=== PATIENT | female | born 1980 | race Caucasian/White ===

== ENCOUNTER 2016-10-09 13:42 | Emergency (ER) | payer BC ==
[2016-10-09 16:01] VITALS: BP 122/77
[2016-10-09] MEDS ORDERED: LORazepam 0.5 MG Tab PO ONE (16:20)
--- NOTE | 2016-10-09 16:23 | EDM.PDOCBH ---
ED HPI GENERAL MEDICAL PROBLEM - General Chief Complaint: Behavioral/Psych Stated Complaint: ANXIETY;MEDS NOT HELPING Time Seen by Provider: 10/09/16 16:00 Source of Information: Reports: Patient History Limitations: Reports: No Limitations - History of Present Illness INITIAL COMMENTS - FREE TEXT/NARRATIVE: Pt arrived with marked tightness in the neck and shoulders. She also feels like her heart is racing. Onset: Gradual Duration: Day(s):, Other (no getting better. 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: Musculoskeletal History: Reports: Back Pain, Chronic, Neck Pain, Chronic Psychiatric History: Reports: Anxiety, Depression, Panic Attack - Infectious Disease History Infectious Disease History: Reports: C-Difficile, RSV - Past Surgical History Female Surgical History: Reports: Section Social & Family History - Tobacco Use Smoking Status *Q: Current Every Day Smoker Years of Tobacco use: 10 Packs/Tins Daily: 0.7 Second Hand Smoke Exposure: Yes - Caffeine Use Caffeine Use: Reports: Coffee, Energy Drinks, Soda - Alcohol Use Days Per Week of Alcohol Use: 0 - Recreational Drug Use Recreational Drug Use: No ED ROS GENERAL - Review of Systems Review Of Systems: See Below Constitutional: Reports: No Symptoms HEENT: Reports: No Symptoms Respiratory: Reports: No Symptoms Cardiovascular: Reports: Palpitations Endocrine: Reports: No Symptoms GI/Abdominal: Reports: No Symptoms : Reports: No Symptoms Musculoskeletal: Reports: Other (pain in the neck and shoulders. ) Skin: Reports: No Symptoms ED EXAM, BEHAVIORAL HEALTH - Physical Exam Exam: See Below Text/Narrative:: pt arrived feeling very anxious and like her heart is racing. She has no chest pain. She has taken .5 of ativan today and she is still very anxious. She has a concern that she could hav something physically going on. Exam Limited By: No Limitations General Appearance: Alert, Anxious Ears: Normal TMs Nose: Normal Inspection Throat/Mouth: Normal Inspection Head: Atraumatic Neck: Normal Inspection Respiratory/Chest: No Respiratory Distress Cardiovascular: Regular Rate, Rhythm, Tachycardia, Other ( rate was 90 when I saw her. ) GI/Abdominal: Soft, Non-Tender (Female) Exam: Deferred Rectal (Female) Exam: Deferred Back Exam: Normal Inspection Extremities: Normal Inspection Neurological: Alert, Normal Cognition Psychiatric: Agitated COURSE, BEHAVIORAL HEALTH COMP - Course Vital Signs: Last Vital Signs Temp 36.4 C 10/09/16 16:06 Pulse 85 10/09/16 16:06 Resp 15 10/09/16 16:06 BP 122/77 10/09/16 16:06 Pulse Ox 99 10/09/16 16:06 Orders, Labs, Meds: Active Orders 24 hr Category Date Time Status EKG Documentation Completion [RC] ASDIRECTED Care 10/09/16 16:19 Active TSH ULTRASENSITIVE [CHEM] Stat Lab 10/09/16 17:18 Received EKG 12 Lead [EK] Routine Ther 10/09/16 16:19 Ordered Laboratory Tests 10/09/16 10/09/16 10/09/16 Range/Units 16:27 16:27 17:12 WBC 9.6 (4.5-11.0) K/uL RBC 5.20 (3.30-5.50) M/uL Hgb 15.8 H (12.0-15.0) g/dL Hct 46.5 (36.0-48.0) % MCV 89 (80-98) fL MCH 30 (27-31) pg MCHC 34 (32-36) % Plt Count 324 (150-400) K/uL Neut % (Auto) 63 (36-66) % Lymph % (Auto) 29 (24-44) % Perkins % (Auto) 6 (2-6) % Eos % (Auto) 1 L (2-4) % Baso % (Auto) 2 H (0-1) % Sodium 138 L (140-148) mmol/L Potassium 4.3 (3.6-5.2) mmol/L Chloride 105 (100-108) mmol/L Carbon Dioxide 25 (21-32) mmol/L Anion Gap 12.3 (5.0-14.0) mmol/L BUN 12 (7-18) mg/dL Creatinine 0.8 (0.6-1.0) mg/dL Est Cr Clr Drug Dosing 90.00 mL/min Estimated GFR (MDRD) > 60 (>60) Glucose 95 (74-106) mg/dL Calcium 8.7 (8.5-10.1) mg/dL Total Bilirubin 0.4 (0.2-1.0) mg/dL AST 16 (15-37) U/L ALT 28 (12-78) U/L Alkaline Phosphatase 49 (46-116) U/L Total Protein 7.8 (6.4-8.2) g/dL Albumin 3.8 (3.4-5.0) g/dL Globulin 4.0 H (2.3-3.5) g/dL Albumin/Globulin Ratio 1.0 L (1.2-2.2) Urine Color Yellow Urine Appearance Clear Urine pH 7.0 (4.5-8.0) Ur Specific [place] 1.010 (1.008-1.030) Urine Protein Negative (NEGATIVE) mg/dL Urine Glucose (UA) Normal (NEGATIVE) mg/dL Urine Ketones Negative (NEGATIVE) mg/dL Urine Occult Blood Negative (NEGATIVE) Urine Nitrite Negative (NEGATIVE) Urine Bilirubin Negative (NEGATIVE) Urine Urobilinogen Normal (NORMAL) mg/dL Ur Leukocyte Esterase Negative (NEGATIVE) Urine RBC 0-5 (0-5) Urine WBC Not seen (0-5) Ur Epithelial Cells Few Amorphous Sediment Not seen Urine Bacteria Not seen Urine Mucus Not seen Medications Discontinued Medications Generic Name Dose Route Start Last Admin Trade Name Freq PRN Reason Stop Dose Admin Lorazepam 0.25 mg 10/09/16 16:20 10/09/16 16:29 Ativan PO 10/09/16 16:21 0.25 mg ONETIME ONE Administration Medical Clearance: 10/09/16 17:41 pt was found to have normal electrolytes and her bs is normal. Her ekg was normal. Pt was given ativan .25 while she was here. Departure - Departure Time of Disposition: 17:44 Disposition: Home, Self-Care 01 Condition: Fair Clinical Impression: Panic attack - Discharge Information Forms: ED Department Discharge Care Plan Goals: use .5 of ativan q6-8h for the next 2 days. Use on a regular basis. keep appt with a counselor and her regular Dr. - My Orders Last 24 Hours: My Active Orders 10/09/16 16:19 EKG Documentation Completion [RC] ASDIRECTED EKG 12 Lead [EK] Routine 10/09/16 17:18 TSH ULTRASENSITIVE [CHEM] Stat - Assessment/Plan Last 24 Hours: My Active Orders 10/09/16 16:19 EKG Documentation Completion [RC] ASDIRECTED EKG 12 Lead [EK] Routine 10/09/16 17:18 TSH ULTRASENSITIVE [CHEM] Stat
== END 2016-10-09 17:55 | disposition home or self-care (01) ==
LOC: JP.ED 13:42
DX: F41.0 Panic disorder [episodic paroxysmal anxiety] (principal); R00.0 Tachycardia, unspecified; F32.9 Major depressive disorder, single episode, unspecified; F17.210 Nicotine dependence, cigarettes, uncomplicated; Z98.890 Other specified postprocedural states
CPT/HCPCS: 36415; 80053; 81001; 84443; 85025; 93005; 99284; A9270

== ENCOUNTER 2017-06-02 11:11 | Emergency (ER) | payer BC ==
[2017-06-02 11:24] VITALS: BP 122/80
[2017-06-02] MEDS ORDERED: Cyclobenzaprine 10 MG Tab PO ONE (11:51)
[2017-06-02] MEDS ORDERED: Ketorolac 60 MG/2 ML SDV IM ONE (11:51)
--- NOTE | 2017-06-02 11:53 | EDM.PDOC ---
ED HPI GENERAL MEDICAL PROBLEM - General Chief Complaint: Upper Extremity Injury/Pain Stated Complaint: RIGHT SHOULDER/NECK PAIN Time Seen by Provider: 06/02/17 11:49 Source of Information: Reports: Patient, RN Notes Reviewed History Limitations: Reports: No Limitations - History of Present Illness INITIAL COMMENTS - FREE TEXT/NARRATIVE: 36-year-old female presents to the emergency department day complaint of right neck and right shoulder pain, she states she was fine yesterday and awoke this morning in severe pain, she is tried some ibuprofen with minimal relief no shortness of breath or difficulty breathing no numbness and tingling no headache Right Neck Pain Score (Numeric/FACES): 7 - Related Data Allergies Allergy/AdvReac Type Severity Reaction Status Date / Time No Known Allergies Allergy Verified 06/02/17 11:30 Home Meds: Home Meds Ibuprofen [Motrin] 600 mg PO Q6H #40 tablet 01/19/14 [Rx] LORazepam 1 mg PO TID 10/09/16 [History] Cyclobenzaprine [Flexeril] 10 mg PO TID PRN #10 tab 06/02/17 [Rx] PARoxetine HCl [Paxil] 40 mg PO BEDTIME 06/02/17 [History] Past Medical History HEENT History: Reports: 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: Musculoskeletal History: Reports: Back Pain, Chronic, Neck Pain, Chronic Psychiatric History: Reports: Anxiety, Depression, Panic Attack - Infectious Disease History Infectious Disease History: Reports: C-Difficile, RSV - Past Surgical History Female Surgical History: Reports: Section Social & Family History - Tobacco Use Smoking Status *Q: Current Every Day Smoker Years of Tobacco use: 10 Packs/Tins Daily: 0.7 Second Hand Smoke Exposure: Yes - Caffeine Use Caffeine Use: Reports: Coffee, Energy Drinks, Soda - Alcohol Use Days Per Week of Alcohol Use: 0 - Recreational Drug Use Recreational Drug Use: No Review of Systems - Review of Systems Review Of Systems: See Below Respiratory: Reports: No Symptoms Cardiovascular: Reports: No Symptoms Musculoskeletal: Reports: Shoulder Pain, Arm Pain Skin: Reports: No Symptoms Neurological: Reports: No Symptoms ED EXAM, GENERAL - Physical Exam Exam: See Below Free Text/Narrative:: Examination of the neck she is tender paraspinal muscles on the right side tender along the rhomboid muscles on the right side she does have full range of motion of the neck however she does flex to the right. She with movement of the right shoulder, radial pulse is +2 Exam Limited By: No Limitations General Appearance: Alert, Mild Distress Respiratory/Chest: No Respiratory Distress Course - Vital Signs Last Recorded V/S: Last Vital Signs Temp 98.1 F 06/02/17 11:27 Pulse 100 06/02/17 11:27 Resp 20 06/02/17 11:27 BP 122/80 06/02/17 11:27 Pulse Ox 98 06/02/17 11:27 - Orders/Labs/Meds Meds: Medications Discontinued Medications Generic Name Dose Route Start Last Admin Trade Name Freq PRN Reason Stop Dose Admin Cyclobenzaprine HCl 10 mg 06/02/17 11:51 06/02/17 12:17 Flexeril PO 06/02/17 11:52 10 mg ONETIME ONE Administration Ketorolac Tromethamine 60 mg 06/02/17 11:51 06/02/17 12:17 Toradol IM 06/02/17 11:52 60 mg ONETIME ONE Administration Departure - Departure Time of Disposition: 13:15 Disposition: Home, Self-Care 01 Condition: Good Clinical Impression: Cervical muscle strain Qualifiers: Encounter type: initial encounter Qualified Code(s): S16.1XXA - Strain of muscle, fascia and tendon at neck level, initial encounter - Discharge Information Prescriptions: Cyclobenzaprine [Flexeril] 10 mg PO TID PRN #10 tab PRN Reason: Pain Referrals: Adriana Tate CNM [Primary Care Provider] - Forms: ED Department Discharge Additional Instructions: Continue to use ibuprofen and Tylenol as needed for pain control, use Flexeril as needed for muscle relaxant and pain, Please followup with your primary care provider in 3-5 days if not better, please call return to the emergency department with worsening of symptoms. - Assessment/Plan Plan: Assessment Acuity = acute Site and laterality = cervical muscle strain Etiology = unclear etiology Manifestations = none Location of injury = Home Lab values = none Plan She had good relief combination Toradol and Flexeril plan is to continue Tylenol or ibuprofen as needed for pain control in combination with Flexeril 1 tab by mouth 3 times a day when necessary total #10 follow-up with primary care in 3-5 days if no improvement This note was dictated using [employer] recognition software please call with any questions on syntax or diamond.
== END 2017-06-02 13:37 | disposition home or self-care (01) ==
LOC: JP.ED 11:11
DX: S16.1XXA Strain of muscle, fascia and tendon at neck level, initial encounter (principal); F17.210 Nicotine dependence, cigarettes, uncomplicated; X58.XXXA Exposure to other specified factors, initial encounter
CPT/HCPCS: 96372; 99283; A9270; J1885

== ENCOUNTER 2017-06-28 19:11 | Emergency (ER) | payer BC ==
[2017-06-28 19:29] VITALS: BP 129/85
[2017-06-28] MEDS ORDERED: Ketorolac 60 MG/2 ML SDV IM ONE (19:55)
--- NOTE | 2017-06-28 19:58 | EDM.PDOC ---
ED HPI GENERAL MEDICAL PROBLEM - General Chief Complaint: Back Pain or Injury Stated Complaint: LOW BACK PAIN Time Seen by Provider: 06/28/17 19:35 Source of Information: Reports: Patient, Family History Limitations: Reports: No Limitations - History of Present Illness INITIAL COMMENTS - FREE TEXT/NARRATIVE: 36-year-old female slipped on the couch last night, woke up this morning noticing her back felt stiff but within 2 hours she was unable to stand straight and was having significant sharp pain in her lower back radiating into the posterior left leg. She had to leave work. She went into the chiropractor but that made her "worse". No incontinence or paresthesias of the left leg. 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 Lower Back Pain Score (Numeric/FACES): 10 - Related Data Allergies Allergy/AdvReac Type Severity Reaction Status Date / Time No Known Allergies Allergy Verified 06/28/17 19:29 Home Meds: Home Meds Ibuprofen [Motrin] 600 mg PO Q6H #40 tablet 01/19/14 [Rx] LORazepam 1 mg PO TID 10/09/16 [History] Cyclobenzaprine [Flexeril] 10 mg PO TID PRN #10 tab 06/02/17 [Rx] PARoxetine HCl [Paxil] 40 mg PO BEDTIME 06/02/17 [History] Past Medical History HEENT History: Reports: Impaired Vision 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 History: Reports: Musculoskeletal History: Reports: Back Pain, Chronic, Neck Pain, Chronic Psychiatric History: Reports: Anxiety, Depression, Panic Attack - Infectious Disease History Infectious Disease History: Reports: C-Difficile, RSV - Past Surgical History Female Surgical History: Reports: Section Social & Family History - Tobacco Use Smoking Status *Q: Current Every Day Smoker Years of Tobacco use: 15 Packs/Tins Daily: 0.7 Second Hand Smoke Exposure: Yes - Caffeine Use Caffeine Use: Reports: Coffee, Tea - Alcohol Use Days Per Week of Alcohol Use: 0 - Recreational Drug Use Recreational Drug Use: No ED ROS GENERAL - Review of Systems Review Of Systems: See Below Constitutional: Denies: Fever, Chills Respiratory: Denies: Shortness of Breath Cardiovascular: Denies: Chest Pain GI/Abdominal: Denies: Abdominal Pain, Nausea, Vomiting : Denies: Incontinence Skin: Denies: Rash Neurological: Reports: No Symptoms ED EXAM,LOWER BACK PAIN/INJURY - Physical Exam Exam: See Below Exam Limited By: No Limitations General Appearance: Alert, No Apparent Distress (Uncomfortable but not distressed) Head: Atraumatic Respiratory/Chest: No Respiratory Distress Back Exam: Paraspinal Tenderness (Very tender to palpation on the left paralumbar area) Neurological: Alert, Normal Mood/Affect, Other (She has increased pain with flexion of the left hip and straight leg raising but no true radiculopathy. It' s more of a pulling sensation of the lower back.) Course - Vital Signs Last Recorded V/S: Last Vital Signs Temp 97.0 F 06/28/17 19:26 Pulse 110 H 06/28/17 19:26 Resp 14 06/28/17 19:26 BP 129/85 06/28/17 19:26 Pulse Ox 98 06/28/17 19:26 - Orders/Labs/Meds Meds: Medications Discontinued Medications Generic Name Dose Route Start Last Admin Trade Name Adonis PRN Reason Stop Dose Admin Ketorolac Tromethamine 60 mg 06/28/17 19:55 06/28/17 20:03 Toradol IM 06/28/17 19:56 60 mg ONETIME ONE Administration - Re-Assessments/Exams Free Text/Narrative Re-Assessment/Exam: 06/28/17 19:56 Patient was given an injection of Toradol 60 mg IM. Also given Flexeril to take up to 3 times a day and will be put on prednisone 60 mg a day for the next 3-5 days with her morning meal. I encouraged her to increase activity as tolerated but wrote her a note for work for the next 2-4 days. Recheck on Saturday if not improving satisfactorily, further evaluation or physical therapy consultation might be needed. Departure - Departure Time of Disposition: 20:18 Disposition: Home, Self-Care 01 Condition: Good Clinical Impression: Low back pain Qualifiers: Chronicity: acute Back pain laterality: left Sciatica presence: without sciatica Qualified Code(s): M54.5 - Low back pain - Discharge Information Instructions: Back Pain, Adult, [id number] Referrals: Bebeto,Adriana A, CNM [Primary Care Provider] - Forms: ED Department Discharge Care Plan Goals: Continue with ibuprofen and Tylenol, along with Flexeril when needing rest. Take 6 pills of prednisone each morning with food for the next 3-5 days and increase activity as tolerated. Recheck on Saturday if not improving satisfactorily, you may need further evaluation or physical therapy consultation.
== END 2017-06-28 20:21 | disposition home or self-care (01) ==
LOC: JP.ED 19:11
DX: M54.5 Low back pain (principal); F17.210 Nicotine dependence, cigarettes, uncomplicated; F41.9 Anxiety disorder, unspecified; F32.9 Major depressive disorder, single episode, unspecified
CPT/HCPCS: 96372; 99283; J1885

== ENCOUNTER 2018-11-08 06:34 | Emergency (ER) | payer BC ==
[2018-11-08 07:21] VITALS: BP 124/81; PULSE 101
--- NOTE | 2018-11-08 08:18 | EDM.PDOC ---
ED HPI GENERAL MEDICAL PROBLEM - General Chief Complaint: Cardiovascular Problem Stated Complaint: HIGH BP, LIGHT HEADED, FAST HEART RATE Time Seen by Provider: 11/08/18 08:00 Source of Information: Reports: Patient History Limitations: Reports: No Limitations - History of Present Illness INITIAL COMMENTS - FREE TEXT/NARRATIVE: 38-year-old female with palpitations, anxiety and lightheaded sensations for the past several days. She has been treated for chronic anxiety and depression for years, and has been off her medication for the past 3 weeks. Last night she had 2 or 3 episodes of palpitations, she was at work this morning and felt stressed and had another 2-3 seconds of palpitations so came in. She is tearful and very anxious. She took her blood pressure at work and it was "high". She has no chest pain or shortness of breath. Onset: Unknown/Unsure Associated Symptoms: Reports: No Other Symptoms, Other (She is very concerned about her triglycerides which were high in the past) - Related Data Allergies Allergy/AdvReac Type Severity Reaction Status Date / Time No Known Allergies Allergy Verified 11/08/18 07:31 Home Meds: Home Meds Ibuprofen [Motrin] 600 mg PO Q6H #40 tablet 01/19/14 [Rx] LORazepam 1 mg PO TID 10/09/16 [History] Aspirin [Halfprin] 81 mg PO DAILY 11/08/18 [History] Krill Oil 500 mg PO DAILY 11/08/18 [History] Past Medical History HEENT History: Reports: Impaired Vision Cardiovascular History: Reports: High Cholesterol 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: Musculoskeletal History: Reports: Back Pain, Chronic, Neck Pain, Chronic Psychiatric History: Reports: Anxiety, Depression, Panic Attack - Infectious Disease History Infectious Disease History: Reports: C-Difficile, RSV - Past Surgical History Female Surgical History: Reports: Section Social & Family History - Tobacco Use Smoking Status *Q: Current Every Day Smoker Years of Tobacco use: 18 Packs/Tins Daily: 0.5 - Caffeine Use Caffeine Use: Reports: Coffee - Recreational Drug Use Recreational Drug Use: No ED ROS GENERAL - Review of Systems Review Of Systems: See Below Constitutional: Reports: Malaise. Denies: Fever, Chills HEENT: Reports: No Symptoms Respiratory: Denies: Shortness of Breath Cardiovascular: Reports: Palpitations. Denies: Chest Pain GI/Abdominal: Denies: Nausea, Vomiting Skin: Reports: No Symptoms Neurological: Reports: Dizziness. Denies: Headache Psychiatric: Reports: Anxiety ED EXAM, GENERAL - Physical Exam Exam: See Below Exam Limited By: No Limitations General Appearance: Alert, No Apparent Distress Head: Atraumatic Respiratory/Chest: No Respiratory Distress, Lungs Clear Cardiovascular: Regular Rate, Rhythm Extremities: Normal Inspection Neurological: Alert, Oriented Psychiatric: Anxious, Depressed Mood Skin Exam: Warm, Dry Course - Vital Signs Last Recorded V/S: Last Vital Signs Temp 97.7 F 11/08/18 07:30 Pulse 101 H 11/08/18 07:30 Resp 12 11/08/18 07:30 BP 124/81 11/08/18 07:30 Pulse Ox 100 11/08/18 07:30 - Re-Assessments/Exams Free Text/Narrative Re-Assessment/Exam: 11/08/18 09:19 Patient was kept on monitoring for half hour and had no abnormalities, she was in a sinus rhythm with normal vitals, normal blood pressure. Encouraged her to restart her anxiety medications and we'll start her on 75 mg of extended release Effexor and gave her one month's supply. She can return if worsening. Otherwise she will keep her appointment on November 26 with her psychiatrist. Departure - Departure Time of Disposition: 08:31 Disposition: Home, Self-Care Clinical Impression: Anxiety about health, Palpitations Instructions: Palpitations Referrals: Adriana Tate CNM [Primary Care Provider] - Forms: ED Department Discharge Care Plan Goals: Start Effexor once daily, no work for the next 2 days and increase activity as tolerated. Recheck on November 26 as planned or return sooner if not improving satisfactorily.
--- OUTSIDE RECORDS SUMMARY | 2018-11-11 14:23 | XMSREPORT | Referral Summary ---
:1980 Author Organization [facility] Address [address] [address] Care Team Providers Name Role Phone Adriana Tate APRN, CNP Primary Care Provider Reason for Referral Therapy (Routine) Status Reason Specialty Diagnoses / Referred By Referred To Procedures Contact Contact Authorized Physical Therapy Diagnoses Chronic bilateral low back pain without sciatica Bulging lumbar disc Stormy Becerra, DL [facility] [address] [facility] [address] [place] [phone] Phone: Fax: Reason for Visit Reason Comments Recheck Encounter Details Date Type Department Care Team Description 11/11/2018 Office Visit [facility] Stormy Becerra MD Anxiety disorder, unspecified type (Primary Dx); [facility] [address] Chronic bilateral low back pain without sciatica; [facility] [address] Bulging lumbar disc; [address] [place], [place] Mixed hyperlipidemia; [place] [address] Heart palpitations [id number] Allergies No Known Allergiesdocumented as of this encounter (statuses as of 11/11/2018) Medications Medication Sig Dispensed Refills Start Date End Date Status levonorgestrel (MIRENA) Insert 1 Intra 1 Each 0 10/01/2014 09/30/2019 Active IUDIndications: IUD Uterine Device contraception into the uterus Continuous. ibuprofen (ADVIL) 200 Take 200 mg by 0 Active MG capsule mouth every six hours as needed for Pain. Take with food or milk. naproxen (NAPROSYN) 500 1 pill twice a 20 Tab 12/16/2017 Active MG tablet day with food as needed for pain/inflammati on. methocarbamol (ROBAXIN) 1-2 tablets 4 30 Tab 3 12/16/2017 Active 750 MG tablet times per day as needed for muscle spasm LORazepam (ATIVAN) 1 MG TAKE 1 TABLET 30 Tab 0 10/23/2018 Active tablet BY MOUTH EVERY DAY NEEDED FOR ANXIETY busPIRone (BUSPAR) 10 Take 1 Tab by 90 Tab 1 11/11/2018 12/11/2018 Active MG tabletIndications: mouth three Anxiety disorder, times a day for unspecified type 30 days. propranolol (INDERAL) Take 1 Tab by 90 Tab 1 11/11/2018 01/10/2019 Active 20 MG mouth three tabletIndications: times a day for Anxiety disorder, 60 days. unspecified type, Heart palpitations documented as of this encounter (statuses as of 11/11/2018) Active Problems Problem Noted Date BMI 32.0-32.9,adult 07/29/2018 Overview: 07/22/18 visit: BMI 32.06 Functional weakness 07/28/2018 Chronic bilateral low back pain without sciatica 07/28/2018 Postural imbalance 07/28/2018 Panic attacks 04/20/2016 Nicotine dependence, cigarettes, uncomplicated 04/12/2016 IUD contraception 10/01/2014 Anxiety and depression 05/18/2014 control 05/18/2014 Previous delivery, unspecified as to episode of care or not 2013 applicable(654.20) Overview: Updated per 11/25/16 IMO import documented as of this encounter (statuses as of 11/11/2018) Resolved Problems Problem Noted Date Resolved Date GBS negative 12/29/2013 07/27/2014 Encounter for supervision of other normal 09/17/2013 07/27/2014 Overview: IMO Update 08/13/2013 09/17/2013 documented as of this encounter (statuses as of 11/11/2018) Immunizations Name Administration Dates Next Due DTaP <7 years 10/04/1988, 08/07/1984, 08/09/1983, 06/07/1983, 04/05/1983 Influenza Quad Preservative Free 11/27/2013 Levonorgestrel 10/01/2014 MMR 06/12/1995, 02/07/1984 Polio Unspecified Formulation 10/04/1988, 08/07/1984, 06/07/1983, 04/05/1983 TD >7yrs With Preservative 06/12/1995 Tdap >7 years 11/12/2013 documented as of this encounter Social History Tobacco Use Types Packs/Day Years Used Date Current Every Day Smoker Cigarettes 0.5 10 Smokeless Tobacco: Never Used Tobacco Cessation: Ready to Quit: No; Counseling Given: Yes Alcohol Use Drinks/Week oz/Week Comments No 1-2 times a month prior to Sex Assigned at Date Recorded Not on file Job Start Date Occupation Industry Not on file Not on file Not on file Travel History Travel Start Travel End No recent travel history available. documented as of this encounter Last Filed Vital Signs Vital Sign Reading Time Taken Comments Blood Pressure 118/80 11/11/2018 9:46 AM CDT Pulse 118 11/11/2018 9:46 AM CDT Temperature 36.8 C (98.2 F) 11/11/2018 9:46 AM CDT Respiratory Rate 18 11/11/2018 9:46 AM CDT Oxygen Saturation 99% 11/11/2018 9:46 AM CDT Inhaled Oxygen Concentration - - Weight 80.3 kg (177 lb 0.5 oz) 11/11/2018 9:46 AM CDT Height - - Body Mass Index 31.36 07/18/2017 11:57 AM CDT documented in this encounter Progress Notes Stormy Becerra MD - 11/11/2018 10:00 AM CDT History of Present Illness: Liz Park is a 38 year old female who present today with is here for anxiety and depressionas well as her cholesterol. She says she was getting palpitations and feeling lightheaded. She says she took some ativan and it helped. She's having panic attacks that cause her some lightheadedness and chest pain, and she is worried about her heart health because she has significant family history of heart disease and CAD. 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 Chronic otitis media Depression Eustachian tube disorder Former smoker History of vaginal delivery Verito Migraines Nicotine dependence, cigarettes, uncomplicated 04/12/2016 Poor vision wears corrective lenses Reflux age 16-17 Varicella Past Surgical History: Procedure Laterality Date TONSILLECTOMY AND ADENOIDECTOMY TYMPANOSTOMY TUBE PLACEMENT Outpatient Medications Marked as Taking for the 11/11/18 encounter (Office Visit ) with Stormy Becerra MD Medication Sig LORazepam (ATIVAN) 1 MG tablet TAKE 1 TABLET BY MOUTH EVERY DAY NEEDED FOR ANXIETY naproxen (NAPROSYN) 500 MG tablet 1 pill twice a day with food as needed for pain/inflammation. methocarbamol (ROBAXIN) 750 MG tablet 1-2 tablets 4 times per day as needed for muscle spasm ibuprofen (ADVIL) 200 MG capsule Take 200 mg by mouth every six hours as needed for Pain. Take with food or milk. levonorgestrel (MIRENA) IUD Insert 1 Intra Uterine Device into the uterus Continuous. No Known Allergies Family History positive for significant heart/CAD issues Review of Systems Constitutional: no weight loss, fever, night sweats Cardiovascular: Positive for: palpitations, tachycardia, irregular heart beat, panic with CP Respiratory: no cough or shortness of breath Musculoskeletal: Positive for: back pain Neurologic: no history of focal neurologic symptoms, spells, memory changes Psychiatric: Positive for: sleep disturbance, anxiety, nervous breakdown, depression, PTSD Physical Exam: Vitals: 11/11/18 0946 BP: 118/80 Pulse: 118 Temp: 36.8 C (98.2 F) TempSrc: Oral Resp: 18 Weight: 177 lb 0.5 oz (80.3 kg) SpO2: 99% General appearance: healthy, alert and orientated X3, in no distress, cooperative CV: regular rhythm, normal heart sounds, no murmur Extremities: no edema Respiratory: normal respiration and clear to auscultation 1. Anxiety disorder, unspecified type Will start buspar and propranolol to see if this helps with symptoms. Encouraged patient to continuetrauma therapy to help with anxiety and to use ativan as little as possible. - busPIRone (BUSPAR) 10 MG tablet; Take 1 Tab by mouth three times a day for 30 days. Dispense: 90 Tab; Refill: 1 - propranolol (INDERAL) 20 MG tablet; Take 1 Tab by mouth three times a day for 60 days. Dispense: 90 Tab; Refill: 1 2. Chronic bilateral low back pain without sciatica Will send to [facility] for PT - APPT WITH PHYSICAL THERAPY [facility] 3. Bulging lumbar disc As above - APPT WITH PHYSICAL THERAPY [facility] 4. Mixed hyperlipidemia Will recheck lipid with patient fasting. Patient has FH of familial hypertriglyceridemia - LIPID PANEL; Future - LIPID PANEL 5. Heart palpitations Propranolol to see if this helps with sensation of panic induced tachycardia/ palpitations - propranolol (INDERAL) 20 MG tablet; Take 1 Tab by mouth three times a day for 60 days. Dispense: 90 Tab; Refill: 1 documented in this encounter Plan of Treatment Name Type Priority Associated Diagnoses Order Schedule APPT WITH PHYSICAL REFERRAL Routine Chronic bilateral low Ordered: 2018 [facility] back pain without sciatica Bulging lumbar disc documented as of this encounter Goals Goal Patient Goal Associated Recent Patient-Stated? Author Type Problems Progress Improve mood General Yes Kirsten Becker, BEARING INSPECTOR,CLINICAL LAW PROFESSOR Note: Crystal will demonstrate improved mood by a score of less than 9 on the PHQ-9. documented as of this encounter Procedures Procedure Name Priority Date/Time Associated Diagnosis Comments LIPID PROFILE Routine 11/11/2018 10:46 AM Mixed hyperlipidemia Results for this CDT procedure are in the results section. documented in this encounter Results LIPID PANEL (11/11/2018 10:46 AM CDT) Cholesterol 183 114 - 200 mg/dL [facility] HDL Cholesterol 31 (L) 40 - 60 mg/dL [facility] Triglycerides 132 10 - 200 mg/dL [facility] LDL Cholesterol, 126 mg/dL [facility] Calculated CLINIC LABORATORY Specimen Blood - Blood Narrative Performed At Triglyceride [facility] If patient is non-fasting, the result of the triglyceride is invalid. Triglyceride Reference Ranges Normal:10-200 mg/dL Borderline High:150-200 mg/dL High: 201-499 mg/dL Very High:=500mg/dL Total Cholesterol Reference Ranges Desirable: <200mg/dL Borderline High: 200-239 mg/dL High:>239mg/dL Calculated LDL Cholesterol Reference Ranges Optimal:<100 mg/dL Near Optimal: 100-129mg/dL Borderline High:130-159mg/dL High: 160-189mg/dL Very High:>189 mg/dL Performing Organization Address City/State/Zipcode Phone Number [facility] [address] [place] [address] LABORATORY documented in this encounter Visit Diagnoses Diagnosis Anxiety disorder, unspecified type - Primary Chronic bilateral low back pain without sciatica Bulging lumbar disc Displacement of lumbar intervertebral disc without myelopathy Mixed hyperlipidemia Heart palpitations Palpitations documented in this encounter Insurance Payer Benefit Plan Subscriber ID Effective Dates Phone Address Type / Group [place] 2018-Pres [place] Commercial [facility] t documented as of this encounter
== END 2018-11-08 08:31 | disposition home or self-care (01) ==
LOC: JP.ED 06:34
DX: F41.9 Anxiety disorder, unspecified (principal); R00.2 Palpitations; F32.9 Major depressive disorder, single episode, unspecified; F17.210 Nicotine dependence, cigarettes, uncomplicated; Z79.82 Long term (current) use of aspirin; Z79.899 Other long term (current) drug therapy; E78.00 Pure hypercholesterolemia, unspecified
CPT/HCPCS: 99284

== ENCOUNTER 2019-01-05 10:52 | Emergency (ER) | payer BC ==
[2019-01-05 11:09] VITALS: BP 154/85; PULSE 116
--- NOTE | 2019-01-05 12:26 | EDM.PDOC ---
ED HPI GENERAL MEDICAL PROBLEM - General Chief Complaint: Cardiovascular Problem Stated Complaint: FAST HEART RATE Time Seen by Provider: 01/05/19 11:55 Source of Information: Reports: Patient History Limitations: Reports: No Limitations - History of Present Illness INITIAL COMMENTS - FREE TEXT/NARRATIVE: 38 yo presents with concerns of palpitations, racing heart Has history of anxiety, high HR for which she is antidepressant, propranolol, ativan. Yesterday she again fell her heart racing. Somewhat anxious about this. Tried propanolol yesterday, ativan this morning. Hasn't seemed to help. Normally takes her propranolol at 3pm and bedtime because it makes her dizzy at work. No dyspnea, no fevers/chills, no chest pain. Left Upper Chest Pain Score (Numeric/FACES): 4 - Related Data Allergies Allergy/AdvReac Type Severity Reaction Status Date / Time No Known Allergies Allergy Verified 01/05/19 11:04 Home Meds: Home Meds Ibuprofen [Motrin] 600 mg PO Q6H #40 tablet 01/19/14 [Rx] LORazepam 1 mg PO TID PRN 10/09/16 [History] Aspirin [Halfprin] 81 mg PO DAILY 11/08/18 [History] Krill Oil 500 mg PO DAILY 11/08/18 [History] Methocarbamol 750 mg PO BID PRN 01/05/19 [History] Propranolol HCl 20 mg PO BID 01/05/19 [History] busPIRone [Buspar] 10 mg PO BID 01/05/19 [History] Past Medical History HEENT History: Reports: Impaired Vision Cardiovascular History: Reports: High Cholesterol, Hypertension 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: Musculoskeletal History: Reports: Back Pain, Chronic, Neck Pain, Chronic Psychiatric History: Reports: Anxiety, Depression, Panic Attack - Infectious Disease History Infectious Disease History: Reports: C-Difficile, RSV - Past Surgical History Female Surgical History: Reports: Section Social & Family History - Tobacco Use Smoking Status *Q: Current Every Day Smoker Years of Tobacco use: 18 Packs/Tins Daily: 0.8 - Caffeine Use Caffeine Use: Reports: Coffee - Recreational Drug Use Recreational Drug Use: No ED ROS GENERAL - Review of Systems Review Of Systems: See Below Constitutional: Reports: No Symptoms HEENT: Reports: No Symptoms Respiratory: Reports: No Symptoms. Denies: Shortness of Breath Cardiovascular: Reports: Palpitations. Denies: Chest Pain Endocrine: Reports: No Symptoms GI/Abdominal: Reports: No Symptoms : Reports: No Symptoms Musculoskeletal: Reports: No Symptoms Skin: Reports: No Symptoms Neurological: Reports: No Symptoms Psychiatric: Reports: No Symptoms Hematologic/Lymphatic: Reports: No Symptoms Immunologic: Reports: No Symptoms ED EXAM, GENERAL - Physical Exam Exam: See Below Exam Limited By: No Limitations General Appearance: Alert, No Apparent Distress Nose: Normal Inspection Throat/Mouth: Normal Inspection Head: Atraumatic, Normocephalic Neck: Normal Inspection Respiratory/Chest: No Respiratory Distress, Lungs Clear Cardiovascular: Regular Rate, Rhythm, No Murmur GI/Abdominal: Soft, Non-Tender Back Exam: Normal Inspection Extremities: Normal Inspection Neurological: Alert, Oriented Psychiatric: Normal Affect, Normal Mood Skin Exam: Warm, Dry Course - Vital Signs Last Recorded V/S: Last Vital Signs Temp 36.6 C 01/05/19 11:05 Pulse 116 H 01/05/19 11:05 Resp 22 H 01/05/19 11:05 BP 154/85 H 01/05/19 11:05 Pulse Ox 100 01/05/19 11:05 - Orders/Labs/Meds Orders: Active Orders 24 hr Category Date Time Status EKG Documentation Completion [RC] ASDIRECTED Care 01/05/19 11:26 Active EKG 12 Lead [EK] Routine Ther 01/05/19 11:26 Ordered - Re-Assessments/Exams Free Text/Narrative Re-Assessment/Exam: 38 yo presents with concerns of palpitations. Has history of this as well as anxiety. On EKG she is in sinus rhythm, she is intermittently tachycardic while in the ED. She is mildly anxious on exam. no other symptoms to suggest there is new illness driving this tachycardia. She does take her propranolol at odd time (3p and bedtime) due to dizziness. We spoke about how this may be a good medication to control her HR, she is going to trial a half dose in the morning tomorrow and monitor for side effects She was instructed to follow-up with her primary doctor. 01/05/19 13:36 Departure - Departure Time of Disposition: 12:25 Disposition: Home, Self-Care 01 Clinical Impression: Palpitations Instructions: Palpitations, [id number] Referrals: Stormy Becerra DO [Primary Care Provider] - Forms: ED Department Discharge Additional Instructions: Please take your propanolol this afternoon, this evening, and then tomorrow AM at 1/2 dose (10 mg) as discussed Follow up with your PCP this week - My Orders Last 24 Hours: My Active Orders 01/05/19 11:26 EKG Documentation Completion [RC] ASDIRECTED EKG 12 Lead [EK] Routine - Assessment/Plan Last 24 Hours: My Active Orders 01/05/19 11:26 EKG Documentation Completion [RC] ASDIRECTED EKG 12 Lead [EK] Routine
== END 2019-01-05 12:52 | disposition home or self-care (01) ==
LOC: JP.ED 10:52
DX: R00.2 Palpitations (principal)
CPT/HCPCS: 93005; 93010; 99284-25

== ENCOUNTER 2019-01-31 04:24 | Emergency (ER) | payer BC ==
[2019-01-31 05:08] VITALS: BP 142/92; PULSE 97
--- NOTE | 2019-01-31 05:30 | EDM.PDOC ---
ED HPI GENERAL MEDICAL PROBLEM - General Chief Complaint: General Stated Complaint: LIGHT HEADED, DIZZY, COLD WAVES Time Seen by Provider: 01/31/19 05:05 Source of Information: Reports: Patient History Limitations: Reports: No Limitations - History of Present Illness INITIAL COMMENTS - FREE TEXT/NARRATIVE: 38-year-old female woke up this morning feeling ill. She felt lightheaded, diaphoretic, and nauseous. She is feeling somewhat better now but was concerned , no diarrhea. No fevers or chills. Onset: Unknown/Unsure (Symptoms were present when she woke up) Associated Symptoms: Reports: Malaise. Denies: Chest Pain, Cough, Fever/Chills , Shortness of Breath - Related Data Allergies Allergy/AdvReac Type Severity Reaction Status Date / Time No Known Allergies Allergy Verified 01/31/19 05:00 Home Meds: Home Meds Ibuprofen [Motrin] 600 mg PO Q6H #40 tablet 01/19/14 [Rx] LORazepam 0.5 mg PO TID PRN 10/09/16 [History] Aspirin [Halfprin] 81 mg PO DAILY 11/08/18 [History] Krill Oil 500 mg PO DAILY 11/08/18 [History] Methocarbamol 750 mg PO BID PRN 01/05/19 [History] Propranolol HCl 20 mg PO TID 01/05/19 [History] busPIRone [Buspar] 4 mg PO BEDTIME 01/05/19 [History] PARoxetine [Paxil] 10 mg PO DAILY 01/31/19 [History] Past Medical History HEENT History: Reports: Impaired Vision Cardiovascular History: Reports: High Cholesterol, Hypertension 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: Musculoskeletal History: Reports: Back Pain, Chronic, Neck Pain, Chronic Psychiatric History: Reports: Anxiety, Depression, Panic Attack - Infectious Disease History Infectious Disease History: Reports: Chicken Pox, Shingles - Past Surgical History Female Surgical History: Reports: Section Social & Family History - Tobacco Use Smoking Status *Q: Current Every Day Smoker Years of Tobacco use: 18 Packs/Tins Daily: 1 Used Tobacco, but Quit: No Second Hand Smoke Exposure: Yes - Caffeine Use Caffeine Use: Reports: Coffee - Alcohol Use Days Per Week of Alcohol Use: 0 - Recreational Drug Use Recreational Drug Use: No ED ROS GENERAL - Review of Systems Review Of Systems: See Below Constitutional: Reports: Malaise. Denies: Fever, Chills Respiratory: Denies: Shortness of Breath Cardiovascular: Denies: Chest Pain GI/Abdominal: Reports: Nausea. Denies: Vomiting Skin: Reports: Diaphoresis Neurological: Reports: Dizziness, Weakness ED EXAM, GENERAL - Physical Exam Exam: See Below Exam Limited By: No Limitations General Appearance: Alert, No Apparent Distress Head: Atraumatic Respiratory/Chest: No Respiratory Distress, Lungs Clear Cardiovascular: Regular Rate, Rhythm. No: Extra Beats GI/Abdominal: Non-Tender Back Exam: Paraspinal Tenderness Neurological: Alert, Oriented, No Motor/Sensory Deficits Psychiatric: Flat Affect Skin Exam: Warm, Dry Course - Vital Signs Last Recorded V/S: Last Vital Signs Temp 98.9 F 01/31/19 05:06 Pulse 97 01/31/19 05:06 Resp 16 01/31/19 05:06 BP 142/92 H 01/31/19 05:06 Pulse Ox 97 01/31/19 05:06 - Re-Assessments/Exams Free Text/Narrative Re-Assessment/Exam: 01/31/19 05:29 Vitals are all normal. Patient was reassured she likely had a brief vasovagal episode, may be coming down with a viral syndrome but no further work-up is needed at this time. She can return if worsening or concerns. Departure - Departure Time of Disposition: 05:45 Disposition: Home, Self-Care 01 Clinical Impression: Vasovagal near-syncope - Discharge Information Instructions: Near-Syncope, [id number] Referrals: Stormy Becerra DO [Primary Care Provider] - Forms: ED Department Discharge Care Plan Goals: Rest, fluids, increase activity and diet as tolerated. Return if worsening such as high fever, persistent vomiting or other concerns.
== END 2019-01-31 05:45 | disposition home or self-care (01) ==
LOC: JP.ED 04:24
DX: R55 Syncope and collapse (principal); F32.9 Major depressive disorder, single episode, unspecified; F17.210 Nicotine dependence, cigarettes, uncomplicated; Z79.82 Long term (current) use of aspirin; Z79.899 Other long term (current) drug therapy
CPT/HCPCS: 99283

== ENCOUNTER 2020-01-30 06:58 | Emergency (ER) | payer BC ==
[2020-01-30] MEDS ORDERED: Metoprolol Tartrate 25 MG Tab PO ONE (07:24)
[2020-01-30] MEDS ORDERED: LORazepam 0.5 MG Tab PO ONE (07:25)
--- NOTE | 2020-01-30 07:39 | EDM.PDOC ---
ED HPI GENERAL MEDICAL PROBLEM - General Chief Complaint: Cardiovascular Problem Stated Complaint: HEART PALPITATIONS Time Seen by Provider: 01/30/20 07:15 Source of Information: Reports: Patient, Old Records, RN History Limitations: Reports: No Limitations - History of Present Illness INITIAL COMMENTS - FREE TEXT/NARRATIVE: 39 yo female with a pHx of anxiety and heart palpitations presents after an episode that occurred at work this morning of tachycardia lasting about 2 min. She had no associated chest pain, SOB, or diaphoresis. Sx's are resolved by the time she arrives. She had some coffee this morning, but not a lot. Says her last thyroid level was about 18 mos ago. 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) (none) - Related Data Allergies Allergy/AdvReac Type Severity Reaction Status Date / Time No Known Allergies Allergy Verified 01/30/20 07:16 Home Meds: Home Meds Ibuprofen [Motrin] 600 mg PO Q6H #40 tablet 01/19/14 [Rx] LORazepam 0.5 mg PO TID PRN 10/09/16 [History] methocarbamoL [Methocarbamol] 750 mg PO BID PRN 01/05/19 [History] PARoxetine [Paxil] 10 mg PO DAILY 01/31/19 [History] Metoprolol Tartrate [Lopressor] 25 mg PO BID 01/30/20 [History] Past Medical History HEENT History: Reports: Impaired Vision, Other (See Below) Other HEENT History: 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 Cardiovascular History: Reports: High Cholesterol, Hypertension 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: Musculoskeletal History: Reports: Back Pain, Chronic, Neck Pain, Chronic Neurological History: Reports: Migraines Psychiatric History: Reports: Anxiety, Depression, Panic Attack - Infectious Disease History Infectious Disease History: Reports: Chicken Pox, Shingles - Past Surgical History HEENT Surgical History: Reports: Adenoidectomy, Myringotomy w Tube(s), Tonsillectomy, Other (See Below) Other HEENT Surgeries/Procedures: "many ear surgeries" Female Surgical History: Reports: Section Social & Family History - Tobacco Use Tobacco Use Status *Q: Light Tobacco User Years of Tobacco use: 20 Packs/Tins Daily: 0.2 - Caffeine Use Caffeine Use: Reports: Coffee - Recreational Drug Use Recreational Drug Use: No ED ROS GENERAL - Review of Systems Review Of Systems: See Below Constitutional: Reports: No Symptoms HEENT: Reports: No Symptoms Respiratory: Reports: No Symptoms Cardiovascular: Reports: Palpitations (tachycardia) GI/Abdominal: Reports: No Symptoms : Reports: No Symptoms Musculoskeletal: Reports: No Symptoms Skin: Reports: No Symptoms Neurological: Reports: No Symptoms ED EXAM, GENERAL - Physical Exam Exam: See Below Exam Limited By: No Limitations General Appearance: Alert, WD/WN, No Apparent Distress, Anxious Eye Exam: Bilateral Eye: Normal Inspection Ears: Normal External Exam, Normal Canal, Hearing Grossly Normal Ear Exam: Bilateral Ear: Auricle Normal, Canal Normal Nose: Normal Inspection, No Blood Throat/Mouth: Normal Inspection, Normal Lips, Normal Oropharynx, Normal Voice, No Airway Compromise Head: Atraumatic, Normocephalic Neck: Normal Inspection Respiratory/Chest: No Respiratory Distress, Lungs Clear, Normal Breath Sounds, No Accessory Muscle Use Cardiovascular: Regular Rate, Rhythm, No Edema GI/Abdominal: Normal Bowel Sounds, Soft, Non-Tender, No Distention Extremities: Normal Inspection Neurological: Alert, Oriented, CN II-XII Intact, Normal Cognition, No Motor/Sensory Deficits Psychiatric: Normal Affect, Normal Mood Skin Exam: Warm, Dry, Intact, Normal Color, No Rash Course - Vital Signs Last Recorded V/S: Last Vital Signs Temp 37.1 C 01/30/20 07:15 Pulse 84 01/30/20 07:33 Resp 19 01/30/20 07:15 BP 120/78 01/30/20 07:33 Pulse Ox 97 01/30/20 07:15 - Orders/Labs/Meds Orders: Active Orders 24 hr Category Date Time Status Cardiac Monitoring [RC] .As Directed Care 01/30/20 07:15 Active Labs: Laboratory Tests 01/30/20 Range/Units 07:42 TSH, Ultra Sensitive 1.816 (0.358-3.740) uIU/mL Meds: Medications Discontinued Medications Generic Name Dose Route Start Last Admin Trade Name Freq PRN Reason Stop Dose Admin Lorazepam 0.5 mg 01/30/20 07:25 01/30/20 07:33 Ativan PO 01/30/20 07:26 0.5 mg ONETIME ONE Administration Metoprolol Tartrate 37.5 mg 01/30/20 07:24 01/30/20 07:33 Lopressor PO 01/30/20 07:25 37.5 mg ONETIME ONE Administration Departure - Departure Time of Disposition: 08:25 Disposition: Home, Self-Care 01 Condition: Good Clinical Impression: Paroxysmal tachycardia Referrals: Stormy Becerra DO [Primary Care Provider] - Forms: ED Department Discharge Additional Instructions: Increase your metoprolol tartrate to 37.5 mg every 12 hrs. If this works for you, then discuss switching to the once a day form of metoprolol with your doctor. Return as needed. Sepsis Event Note (ED) - Evaluation Sepsis Screening Result: No Definite Risk - Focused Exam Vital Signs: Vital Signs Temp Pulse Pulse Resp BP BP Pulse Ox 01/30/20 07:33 84 120/78 01/30/20 07:15 37.1 C 99 19 120/78 97 01/30/20 07:11 37.1 C 99 19 120/78 97 - My Orders Last 24 Hours: My Active Orders 01/30/20 07:15 Cardiac Monitoring [RC] .As Directed - Assessment/Plan Last 24 Hours: My Active Orders 01/30/20 07:15 Cardiac Monitoring [RC] .As Directed
[2020-01-30 08:19] VITALS: BP 112/76; PULSE 89
== END 2020-01-30 08:28 | disposition home or self-care (01) ==
LOC: JP.ED 06:58
DX: I47.9 Paroxysmal tachycardia, unspecified (principal); I10 Essential (primary) hypertension; F41.9 Anxiety disorder, unspecified; F32.9 Major depressive disorder, single episode, unspecified; F17.200 Nicotine dependence, unspecified, uncomplicated; Z90.49 Acquired absence of other specified parts of digestive tract; Z79.899 Other long term (current) drug therapy
CPT/HCPCS: 36415; 84443; 99284; A9270; 99283

== ENCOUNTER 2021-10-01 19:46 | Emergency (ER) | payer BC ==
[2021-10-01 20:11] VITALS: BP 127/95; PULSE 95
[2021-10-01] MEDS ORDERED: Bupivacaine 0.5% 10 ML SDV INJECT ONE (20:38)
[2021-10-01] MEDS ORDERED: Acetaminophen/oxyCODONE 325-5 MG Tab PO STA (21:18)
== END 2021-10-01 22:39 | disposition home or self-care (01) ==
LOC: JP.ED 19:46
DX: G50.0 Trigeminal neuralgia (principal); M62.838 Other muscle spasm; I10 Essential (primary) hypertension
CPT/HCPCS: 20552; 99282; 99283; A9270; J3490

== ENCOUNTER 2022-04-08 17:15 | Emergency (ER) | payer BC ==
[2022-04-08 17:54] VITALS: BP 140/90; PULSE 94
[2022-04-08] MEDS ORDERED: traMADol 50 MG Tab PO ONE (18:14)
== END 2022-04-08 18:38 | disposition home or self-care (01) ==
LOC: JP.ED 17:15
DX: R51.9 Headache, unspecified (principal); M79.2 Neuralgia and neuritis, unspecified; M26.621 Arthralgia of right temporomandibular joint; G89.29 Other chronic pain; M62.838 Other muscle spasm; E78.00 Pure hypercholesterolemia, unspecified; I10 Essential (primary) hypertension; F17.210 Nicotine dependence, cigarettes, uncomplicated; Z79.899 Other long term (current) drug therapy
CPT/HCPCS: 99283; A9270

== ENCOUNTER 2022-06-18 18:17 | Emergency (ER) | payer BC ==
[2022-06-18 18:31] VITALS: BP 146/103; PULSE 81
[2022-06-18] MEDS ORDERED: HYDROmorphone 1 MG/ML Syringe IM ONE (18:48)
== END 2022-06-18 19:16 | disposition home or self-care (01) ==
LOC: JP.ED 18:17
DX: M54.81 Occipital neuralgia (principal); E78.00 Pure hypercholesterolemia, unspecified; I10 Essential (primary) hypertension; Z72.0 Tobacco use; Z79.899 Other long term (current) drug therapy
CPT/HCPCS: 96372; 99283; J1170; 99282

== ENCOUNTER 2025-01-19 12:03 | Emergency (ER) | payer BC ==
[2025-01-19 12:16] VITALS: BP 139/87; PULSE 89
[2025-01-19] MEDS: diphenhydrAMINE 50 MG/ML SDV IM ONE (12:47)
== END 2025-01-19 13:49 | disposition home or self-care (01) ==
LOC: JP.ED 12:03
DX: M26.629 Arthralgia of temporomandibular joint, unspecified side (principal); G50.0 Trigeminal neuralgia; Z88.8 Allergy status to other drugs, medicaments and biological substances; Z79.899 Other long term (current) drug therapy; E78.00 Pure hypercholesterolemia, unspecified; I10 Essential (primary) hypertension; F17.200 Nicotine dependence, unspecified, uncomplicated
CPT/HCPCS: 96372; 99283; J1200; J1790